=== PATIENT | female | born 1990 | race Caucasian/White ===

== ENCOUNTER 2017-09-07 08:22 | Emergency (ER) | payer OTHER ==
[2017-09-07] MEDS: ACETAMINOPHEN 325 MG TAB PO (09:08)
[2017-09-07 09:26] LABS: ADD UMIC YES; UR ASCORBIC ACID NEGATIVE (NEGATIVE); UR BACTERIA FEW /HPF (NONE SEEN); UR BILIRUBIN (Dip) NEGATIVE (NEGATIVE); UR BLOOD (Dip) NEGATIVE (NEGATIVE); UR CLARITY SLIGHTLY CLOUDY (CLEAR); UR COLOR YELLOW (YELLOW); UR GLUCOSE (Dip) NEGATIVE (NEGATIVE); UR KETONES (Dip) 1+ mg/dL (NEGATIVE); UR LEUKOCYTE ESTERASE (Dip) TRACE Leu/ul (NEGATIVE); UR NITRITE (Dip) NEGATIVE (NEGATIVE); UR RBC 1 /HPF (0-5); UR SPECIFIC GRAVITY (Dip) 1.013 (1.003-1.030); UR SQUAMOUS EPITHELIAL CELL FEW /HPF (FEW); UR TOTAL PROTEIN (Dip) NEGATIVE (NEGATIVE); UR UROBILINOGEN (Dip) NEGATIVE (NEGATIVE); UR WBC 2 /HPF (0-5)
== END 2017-09-07 10:13 | disposition home or self-care (01) ==
LOC: E/R 08:22
DX: O99.89 Other specified diseases and conditions complicating pregnancy, childbirth and the puerperium (principal); H66.001 Acute suppurative otitis media without spontaneous rupture of ear drum, right ear; O23.13 Infections of bladder in pregnancy, third trimester; Z3A.35 35 weeks gestation of pregnancy
CPT/HCPCS: 81001; 87086; 99283

== ENCOUNTER 2018-03-08 09:03 | Emergency (ER) | payer OTHER ==
[2018-03-08] MEDS: LIDOCAINE 1% (MDV) 20 ML INJ SC (09:37)
== END 2018-03-08 11:43 | disposition home or self-care (01) ==
LOC: FTE 09:03
DX: L60.0 Ingrowing nail (principal); R40.2412 Glasgow coma scale score 13-15, at arrival to emergency department
CPT/HCPCS: 11765; 99282-25